=== PATIENT | female | born 1970 | race Caucasian/White ===

== ENCOUNTER 2019-02-27 09:02 | Outpatient (RCR) | payer OTHER, SELFPAY ==
--- NOTE | 2019-03-04 08:39 | PT.OIE ---
Current Diagnoses Unspecified urinary incontinence (02/27/19) Provider Visit Care Team Role Provider Type Kylah Leong MD Attending Provider Non-Staff Primary Care Provider Specialty: Medical Address: [address] [place] [address], [place], [place], [facility] Email: Physical Therapy Initial Evaluation PT-OP-A Visit Information Start: 03/04/19 08:05 Freq: Status: Active Protocol: Document 02/27/19 09:00 [facility] (Rec: 03/04/19 08:38 [facility] [email or web address]) Out-Patient Physical Therapy Visit Information Visit Information Visit Type Initial Evaluation Visit Note 48 year old female with hx of pelvic pain symptoms and urinary incontinence. 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 SHe feels like she can't fullly eliminate her baldder and then will have leakage. Her mesh surgery was in 2016, she has a history of ovarian cancer in 1999 Visit Start Time 09:00 Visit Stop Time 09:45 Total Visit Minutes 45 Visit Number 1 Evaluation Information Evaluation Date 02/27/19 PT-OP-B Current Condition Start: 03/04/19 08:05 Freq: Status: Active Protocol: Document 02/27/19 09:00 [facility] (Rec: 03/04/19 08:38 [facility] [email or web address]) Current Condition History of Current Condition Onset Date 2016 Current Complaints not able to fully empty the bladder, urinary leakage History of Current Condition 48 year old female with hx of pelvic pain symptoms and urinary incontinence. 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 SHe feels like she can't fullly eliminate her baldder and then will have leakage. Her mesh surgery was in 2016, she has a history of ovarian cancer in 1999 Prior Treatments and Tests She has had previous PT in the past for scar tissue mobilization and reports she feels as if this helps Treatment Goals Patient/Caregiver Goals To be able to fully empty her bladder and avoid urinary leakage Current Functional Impairments (Reported) Functional Limitations- ADL's voiding dysfunction PT-OP-F Manual Assessment Start: 03/04/19 08:38 Freq: Status: Active Protocol: Document 02/27/19 09:00 [facility] (Rec: 03/04/19 08:39 [facility] [email or web address]) Manual Assessments Soft Tissue Assessment Soft Tissue Mobility Assessment Myofasical and scar tissue restrictions over the right suprapubic fascia and anterior hip/pelvis. Restrictions in the right pubococcygeus muscle attachment on the right. Myofascial restrictions over the bladder. Iliopsoas tightness right side. PT-OP-I Pelvic Floor Start: 03/04/19 08:05 Freq: Status: Active Protocol: Document 02/27/19 09:00 [facility] (Rec: 03/04/19 08:38 [facility] [email or web address]) Pelvic Floor Assessment Urine Pelvic Floor Surgery No Urinary Symptoms Dribbling After Urination Incomplete Emptying Pain Other Urinary Symptoms c/o scar tissue tightness and feeling as if her bladder is binded down Leakage Size Small Leakage Cause Cough Exercise Lifting Sneeze Other Leakage Causes if not able to brace first she will leak with a cough or sneeze Leaks Per Day varies Voiding Frequency 2 hours Nocturia no Pelvic Clock Pelvic Clock 12-3 Atrophy Pelvic Clock 3-6 Atrophy Pelvic Clock Other swelling noted in the right> left suprapubic region with internal assessment, tenderness and myofascial tightness at the right pubic bone Contraction Ability Voluntary Contraction Weak Voluntary Relaxation Moderate Manual Muscle Testing Left 4 Manual Muscle Testing Right 4 Manual Muscle Testing Anterior 2 Manual Muscle Testing Posterior 4 Muscle Endurance (Seconds) 8 PT-OP-J Posture/Palpation/Skin Start: 03/04/19 08:05 Freq: Status: Active Protocol: Document 02/27/19 09:00 [facility] (Rec: 03/04/19 08:38 [facility] [email or web address]) Palpation Assessment Location Two Palpation Location right iliopsoas Palpation Findings Soft Tissue Tightness Muscle Guarding Palpation Details + gage test and palpation findings of iliopsoas restrictions on the right One Palpation Location right suprapubic fascia Palpation Findings Soft Tissue Tightness Palpation Details myofascial tightness in the right inguinal region and near the pubic bone on the right , internally there is is rightness in the anterior portion of the pubococcygeus and at the pubic tubercle and superior ramus of pubis on the right. Swelling is also noted here. PT-OP-Q Treatments Start: 03/04/19 08:05 Freq: Status: Active Protocol: Document 02/27/19 09:00 [facility] (Rec: 03/04/19 08:38 [facility] [email or web address]) Manual Therapy Treatment Soft Tissue Mobilization 1 Body Location MFR of the suprapubic fascia Mobilization Type Myofascial Release Intensity/Depth Superficial Body Position Hooklying Comments with internal release of the anterior portion of the pubococcygeus PT-OP-T Assessment and Plan Start: 03/04/19 08:05 Freq: Status: Active Protocol: Document 02/27/19 09:00 [facility] (Rec: 03/04/19 08:38 [facility] [email or web address]) Physical Therapy Assessment Rehab Potential Rehabilitation Potential Excellent Evaluation Complexity Number of Personal Factors/Comorbidities 0 Number of Body Systems Impaired 1-2 Clinical Presentation at Evaluation Stable Impairments Impairments Activity Tolerance Edema Soft Tissue Mobility Strength Tone Other Impairments urinary leakage with cough sneeze Goals Four Impairment Iliopsoas tightness and decreased length on the right, + Gage test R Short Term Goal (STG) Caty is able to being working on iliopsoas length to improve mobility of the hip flexor on the right reducing tightness near the anterior pelvis STG Duration 4 weeks Three Impairment Imcomplete bladder emptying Team Truck Driver Goal (LTG) Caty notes a improved ability to empty her bladder due to improved mobility of the bladder and decreased tightness of the surrounding fascia LTG Duration 8 weeks One Impairment Scar tissue restrictions and myofascial tightness R anterior pelvis Intermediate Goal (LTG) Improve tissue mobility of the anterior pelvis with MFR and scar tissue work at the supra pubic fascia and pubic region to decrease Ronny complaints of her bladder being binded down due to scar tissue. LTG Duration 8 weeks Two Impairment urinary incontinence with anterior levator ani weakness 2/5 MMT Team Truck Driver Goal (LTG) By reducing scar tissue and improving mobiilty of the anterior portion of the pubococcygeus Caty is better able to facilitate a contraction in the anterior pubococcygeus muscle and reduce urinary incontinence. LTG Duration 8 weeks Assessment Summary Assessment Caty presents to physical therapy today with complaints of incomplete emptying of her bladder and urinary stress incontinence with unprepared cough or sneeze. She feels some of this weakness is due to scar tissue that has formed following both her ovarian cancer in 2000 and right inguinal hernia with mesh repair in 2017. She feels a right sided tightness that tethers her bladder and makes it difficult to fully empty her bladder. With examination today she is weaker in the anterior portion of the levator ani and there is tissue restrictions on the right side of the pubic tubercle and ramus as well as some swelling noted in the tissue. There is scar tissue and myofascial tightness noted in the right side of the suprapubic fascia and limitations with bladder mobility. I began MFR today both over the bladder and internally to relase the anterior portion of the pubococcygeus. Caty tolerated this well. She is a good candidate for PT Physical Therapy Plan Frequency and Duration Frequency of Treatment 1x/Week Duration of Treatment 8 weeks Plan of Care Start Date 02/27/19 Plan of Care End Date 04/24/19 Therapeutic Interventions Therapeutic Interventions Home Exercise Program Neuromuscular Re-education Patient/Caregiver Education Self-Care/Home Management Soft Tissue Mobilization Therapeutic Exercises Modalities Biofeedback Next Visit Focus/Plan Next Note Type Treatment Note Next Visit Plan Continue to work on releasing myofascial and scar tissue restrictions. Recheck Iliopsoas length next visit
--- NOTE | 2019-09-20 15:02 | PT.OPDS ---
Current Diagnoses Pelvic muscle wasting (02/27/19) Unspecified urinary incontinence (02/27/19) Feeling of incomplete bladder emptying (02/27/19) Visit Care Team Role Provider Type Kylah Leong MD Attending Provider Non-Staff Primary Care Provider Specialty: Medical Address: [address] [place] [address] [place] [address] Email: Visit Number Visit Number 1 Discharge Summary PT-OP-B Current Condition Start: 03/04/19 08:05 Freq: Status: Active Protocol: Document 02/27/19 09:00 [facility] (Rec: 03/04/19 08:38 [facility] [email or web address]) Current Condition History of Current Condition Onset Date 2016 Current Complaints not able to fully empty the bladder, urinary leakage History of Current Condition 48 year old female with hx of pelvic pain symptoms and urinary incontinence. 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 SHe feels like she can't fullly eliminate her baldder and then will have leakage. Her mesh surgery was in 2017, she has a history of ovarian cancer in 2000 Prior Treatments and Tests She has had previous PT in the past for scar tissue mobilization and reports she feels as if this helps Treatment Goals Patient/Caregiver Goals To be able to fully empty her bladder and avoid urinary leakage Current Functional Impairments (Reported) Functional Limitations- ADL's voiding dysfunction PT-OP-F Manual Assessment Start: 03/04/19 08:38 Freq: Status: Active Protocol: Document 02/27/19 09:00 [facility] (Rec: 03/04/19 08:39 [facility] [email or web address]) Manual Assessments Soft Tissue Assessment Soft Tissue Mobility Assessment Myofasical and scar tissue restrictions over the right suprapubic fascia and anterior hip/pelvis. Restrictions in the right pubococcygeus muscle attachment on the right. Myofascial restrictions over the bladder. Iliopsoas tightness right side. PT-OP-I Pelvic Floor Start: 03/04/19 08:05 Freq: Status: Active Protocol: Document 02/27/19 09:00 [facility] (Rec: 03/04/19 08:38 [facility] [email or web address]) Pelvic Floor Assessment Urine Pelvic Floor Surgery No Urinary Symptoms Dribbling After Urination, Incomplete Emptying,Pain Other Urinary Symptoms c/o scar tissue tightness and feeling as if her bladder is binded down Leakage Size Small Leakage Cause Cough,Exercise,Lifting,Sneeze Other Leakage Causes if not able to brace first she will leak with a cough or sneeze Leaks Per Day varies Voiding Frequency 2 hours Nocturia no Pelvic Clock Pelvic Clock 12-3 Atrophy Pelvic Clock 3-6 Atrophy Pelvic Clock Other swelling noted in the right> left suprapubic region with internal assessment, tenderness and myofascial tightness at the right pubic bone Contraction Ability Voluntary Contraction Weak Voluntary Relaxation Moderate Manual Muscle Testing Left 4 Manual Muscle Testing Right 4 Manual Muscle Testing Anterior 2 Manual Muscle Testing Posterior 4 Muscle Endurance (Seconds) 8 PT-OP-J Posture/Palpation/Skin Start: 03/04/19 08:05 Freq: Status: Active Protocol: Document 02/27/19 09:00 [facility] (Rec: 03/04/19 08:38 [facility] [email or web address]) Palpation Assessment Location Two Palpation Location right iliopsoas Palpation Findings Soft Tissue Tightness,Muscle Guarding Palpation Details + susan test and palpation findings of iliopsoas restrictions on the right One Palpation Location right suprapubic fascia Palpation Findings Soft Tissue Tightness Palpation Details myofascial tightness in the right inguinal region and near the pubic bone on the right , internally there is is rightness in the anterior portion of the pubococcygeus and at the pubic tubercle and superior ramus of pubis on the right. Swelling is also noted here. PT-OP-T Assessment and Plan Start: 03/04/19 08:05 Freq: Status: Active Protocol: Document 09/20/19 14:59 [facility] (Rec: 09/20/19 15:01 [facility] [email or web address]) Physical Therapy Plan Discharge Physical Therapy Discharge Reasons No Longer Attending PT Discharge Comments The patient has not been seen since her initial evaluation in February. [facility]ALPH PT at time
== END 2019-02-28 12:28 ==
LOC: PHYS 09:02
PROVIDERS: PCP Family Medicine; Visit Provider Family Medicine
DX: R32 Unspecified urinary incontinence (principal); R39.14 Feeling of incomplete bladder emptying; N81.84 Pelvic muscle wasting
CPT/HCPCS: 97140; 97161

== ENCOUNTER → 2021-04-03 12:07 | Outpatient (CLI) | payer OTHER, SELFPAY ==
[2021-04-03 19:59] LABS: COVID19 - ORCAS (NP or Nasal) POSITIVE (Negative)
== END ==
PROVIDERS: PCP Family Medicine; Visit Provider Family Medicine
DX: J06.9 Acute upper respiratory infection, unspecified (principal); U07.1 COVID-19
CPT/HCPCS: U0003